=== PATIENT | male | born 1955 | race Caucasian/White ===

== ENCOUNTER 2019-05-30 07:56 | Outpatient (CLI) | payer BC ==
[2019-05-30] MEDS ORDERED: Iopamidol 370 76% 100 ML VIAL ONE (09:00)
--- NOTE | 2019-05-30 10:55 | CT ---
CT Abdomen Pelvis W Con HISTORY: Abdominal pain COMPARISON: None. FINDINGS: The lung bases are unremarkable. No calcified gallstones are seen. There is fatty infiltration of the liver without evidence of focal mass or abnormal biliary ductal dilatation. Postop changes of hiatal hernia surgery are present. The spleen, pancreas, adrenal glands and left kidney appear normal . There is a small low-density lesion in the inferior pole of the right kidney, likely cyst. No free air, free fluid or lymphadenopathy seen in the abdomen or pelvis. There are vascular calcific ations without evidence of aneurysmal dilatation of the abdominal aorta. Degenerative changes are present in the spine there is chronic compression of L1 and L3 vertebral bodies. IMPRESSION: 1. Fatty liver 2. No acute process.
== END 2019-05-30 07:57 | disposition home or self-care (01) ==
LOC: NAV CT 07:56
PROVIDERS: ATTEND Internal Medicine
DX: K44.9 Diaphragmatic hernia without obstruction or gangrene (principal); E78.2 Mixed hyperlipidemia; K76.0 Fatty (change of) liver, not elsewhere classified
CPT/HCPCS: 74177